=== PATIENT | male | born 1950 | race Caucasian/White ===

== ENCOUNTER 2018-02-19 16:02 | Emergency (ER) | payer OTHER ==
[2018-02-19 16:07] VITALS: BP 139/78; PULSE 74; TEMP 97.1; BMI 22.1
--- NOTE | 2018-02-19 16:09 | PDOC ---
Rapid Medical Evaluation Chief Complaint: Chest Pain Time Seen by Provider: 02/19/18 16:04 Medical Evaluation: Allergies Allergy/AdvReac Type Severity Reaction Status Date / Time No Known Allergies Allergy Verified 04/21/15 20:16 02/19/18 16:05 I have performed a brief in-person evaluation of this patient. The patient presents with a chief complaint of: CP, dizziness, Nausea Pertinent physical exam findings:+ SOB, pale, diaphoretic I have ordered the following: CBC,CMP, Cardiac profile, PT/INR, EKG The patient taken to the ED for further evaluation. 02/19/18 16:08 02/19/18 16:09 Discharge Disposition - Referrals Referrals: Francisco Mukherjee MD [Primary Care Provider] - - Patient Instructions - Post Discharge Activity
[2018-02-19] MEDS ORDERED: ONDANSETRON 4 MG/2 ML VIAL ONE (16:27)
[2018-02-19] MEDS ORDERED: ONDANSETRON 4 MG/2 ML VIAL IVPB ONE (16:27)
[2018-02-19] MEDS ORDERED: SODIUM CHLORIDE 1,000 ML IV STA (16:27)
[2018-02-19 16:28] LABS: BASO % 0.8 % (0-2.0); EOS % 3.3 % (0-4.5); HEMATOCRIT 44.5 % (35.4-49); HEMOGLOBIN 14.5 GM/dL (11.7-16.9); LYMPH % 36.5 % (8-40); MCH 26.2 pg (25.7-33.7); MCHC 32.6 g/dl (32.0-35.9); MEAN CELL VOLUME 80.5 fl (80-96); MEAN PLT VOLUME 9.4 fl (7.5-11.1); MONO % 9.8 % (3.8-10.2); NEUT % 49.6 % (42.8-82.8); PLATELET COUNT 249 K/MM3 (134-434); RBC 5.53 M/mm3 (4.00-5.60); RDW 13.7 % (11.9-15.9); WHITE BLOOD COUNT 5.3 K/mm3 (4.0-10.0)
[2018-02-19 16:44] LABS: INR 1.05 (0.83-1.09); PROTHROMBIN TIME (PATIENT) 11.9 SEC (9.7-13.0)
[2018-02-19 16:51] LABS: ALBUMIN 3.7 g/dl (3.4-5.0); ANION GAP 9 MMOL/L (8-16); BILIRUBIN,TOTAL 0.4 mg/dL (0.2-1.0); BLOOD UREA NITROGEN 18 mg/dL (7-18); CALCIUM 8.5 mg/dL (8.5-10.1); CHLORIDE 110 mmol/L (98-107); CO2 26 mmol/L (21-32); CREATININE 0.8 mg/dL (0.7-1.3); GLUCOSE,RANDOM 109 mg/dL (74-106); POTASSIUM 4.1 mmol/L (3.5-5.1); SGOT/AST 16 U/L (15-37); SGPT/ALT 23 U/L (12-78); SODIUM 145 mmol/L (136-145); TOT PROT 6.9 g/dl (6.4-8.2)
[2018-02-19 16:53] LABS: ALK PHOS 64 U/L (45-117)
--- NOTE | 2018-02-19 16:53 | PDOC ---
History of Present Illness - General Chief Complaint: Pain Stated Complaint: ABD PAIN Time Seen by Provider: 02/19/18 16:04 History Source: Patient, Spouse () Exam Limitations: No Limitations - History of Present Illness Initial Comments: 02/19/18 16:44 Pt is a 67yo m with no significant PMH arriving to ED with complaints of dizziness and nausea that started 2 hours ago. Pt said he was lying down and when he got up he started to feel dizzy. He has continuously felt dizzy since. He describes the dizziness as the room spinning and it gets better with sitting down. It is associated with nausea, shortness of breath and diaphoresis. He also hears ringing in his L ear. He denies chest pain, syncope, lightheadedness, headache, vomiting, weakness, numbness/tingling, abdominal pain, blood in stool, urinary symptoms. Denies family history of stroke. Brother had a "Mini heart attack" at age 56 but no emergent intervention needed to be done. PCP: Dr. Francisco Mukherjee PMH: none PSH: none Meds: none Allergies: nkda Social: denies Past History - Past Medical History Allergies/Adverse Reactions: Allergies Allergy/AdvReac Type Severity Reaction Status Date / Time No Known Allergies Allergy Verified 02/19/18 16:07 Home Medications: Ambulatory Orders Meclizine HCl 12.5 mg PO BID #14 tablet 02/19/18 Ondansetron HCl [Zofran] 4 mg PO DAILY #7 tablet 02/19/18 COPD: No - Immunization History Immunization Up to Date: Yes - Suicide/Smoking/Psychosocial Hx Smoking History: Never smoked Have you smoked in the past 12 months: No Number of Cigarettes Smoked Daily: 0 Information on smoking cessation initiated: No Hx Alcohol Use: No Drug/Substance Use Hx: No Substance Use Type: None Review of Systems - Review of Systems Constitutional: Yes: Diaphoresis. No: Chills, Fever HEENTM: Yes: Tinnitus (L ear). No: Eye Pain, Blurred Vision, Recent change in vision, Double Vision, Ear Pain, Hearing Loss Respiratory: Yes: Shortness of Breath. No: Cough Cardiac (ROS): No: Chest Pain, Lightheadedness, Palpitations, Syncope ABD/GI: Yes: Nausea. No: Blood Streaked Bowels, Constipated, Diarrhea, Vomiting , Abdominal cramping : No: Burning, Dysuria, Hematuria Musculoskeletal: No: Back Pain, Joint Pain, Muscle Pain, Muscle Weakness, Neck Pain, Joint Stiffness Neurological: No: Headache, Numbness, Tingling, Weakness *Physical Exam - Vital Signs Last Vital Signs Temp Pulse Resp BP Pulse Ox 97.1 F L 74 21 139/78 99 02/19/18 16:06 02/19/18 16:06 02/19/18 16:06 02/19/18 16:06 02/19/18 16:06 - Physical Exam Comments: 02/19/18 16:57 Pt appeared pale General Appearance: Yes: Nourished, Appropriately Dressed, Mild Distress HEENT: positive: EOMI, MOHAMUD, TMs Normal, Hearing Grossly Normal. negative: Pale Conjunctivae, Scleral Icterus (R), Scleral Icterus (L), Sinus Tenderness Neck: positive: Trachea midline, Supple. negative: Carotid bruit, Lymphadenopathy (R), Lymphadenopathy (L) Respiratory/Chest: positive: Lungs Clear, Normal Breath Sounds. negative: Rales , Rhonchi, Stridor, Wheezing Cardiovascular: positive: Regular Rhythm, Regular Rate, S1, S2. negative: Edema , JVD, Murmur Vascular Pulses: Carotid (R): 2+, Carotid (L): 2+, Dorsalis-Pedis (R): 2+, Doralis-Pedis (L): 2+ Gastrointestinal/Abdominal: positive: Normal Bowel Sounds, Soft. negative: Distended, Guarding, Rebound, Tenderness Musculoskeletal: negative: CVA Tenderness Extremity: positive: Normal Capillary Refill Integumentary: positive: Normal Color, Dry, Warm. 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, Fully Oriented, Alert, Normal Mood/ Affect, Normal Response, Motor Strength 5/5, Finger to Nose Deep Tendon Reflexes: Knee (L): 2+, Knee (R): 2+ ED Treatment Course - LABORATORY CBC & Chemistry Diagram: 02/19/18 16:13 02/19/18 16:13 - ADDITIONAL ORDERS Additional order review: 02/19/18 16:13 RBC 5.53 MCV 80.5 MCHC 32.6 RDW 13.7 MPV 9.4 Neutrophils % 49.6 D Lymphocytes % 36.5 D Monocytes % 9.8 Eosinophils % 3.3 D Basophils % 0.8 - RADIOLOGY Radiology Studies Ordered: Category Date Time Status CHEST X-RAY PORTABLE* [RAD] Stat Radiology 02/19/18 16:12 Taken - Medications Given in the ED: ED Medications Discontinued Medications Generic Name Dose Route Start Last Admin Trade Name Arsen PRN Reason Stop Dose Admin Ondansetron HCl 4 mg 02/19/18 16:27 02/19/18 16:30 Zofran Injection IVPB 02/19/18 16:28 4 mg ONCE ONE Administration Medical Decision Making - Medical Decision Making 02/19/18 16:54 Pt is a 67yo m with no significant PMH arriving to ED with complaints of dizziness and nausea that started 2 hours ago. *pt had an episode of emesis during physical exam. Pt stated he felt really dizzy and really nauseous. I went to get the nurse to administer Zofran. Pt started to vomit. Pt reported feeling much better after emesis, said he was not feeling dizzy and did not feel short of breath. 02/19/18 17:40 Upon reevaluation, pt reported feeling "a little bit better". When asked if he still had some dizziness, pt said yes. Ordered Meclizine 25mg. Will reevalute. If still dizzy after meclizine, considering head CT or CTA neck. 02/19/18 18:26 Pt reported resolution of symptoms. Pt able to ambulate and did not feel dizzy. Will d/c pt home. Asked pt to follow up with PCP. Pt hemodynamically stable. Agreed with plan to be d/c home. Given strict return precautions. Verbalized understanding. Rx for zofran and meclizine sent to pharmacy. *DC/Admit/Observation/Transfer Diagnosis at time of Disposition: Vertigo - Discharge Dispostion Disposition: HOME Condition at time of disposition: Improved Decision to Admit order: No - Prescriptions Prescriptions: Meclizine HCl 12.5 mg PO BID #14 tablet Ondansetron HCl [Zofran] 4 mg PO DAILY #7 tablet - Referrals Referrals: Francisco Mukherjee MD [Primary Care Provider] - - Patient Instructions Printed Discharge Instructions: DI for Vertigo Additional Instructions: You were seen here today because you were feeling dizzy. We did blood tests, Xray and an EKG. Your results were normal. The most likely cause of your dizziness is Vertigo. Please make an appointment with Dr. Mukherjee within the next week for further care. I sent prescriptions to your pharmacy: meclizine and Zofran. Please come back to the ED if: your dizziness gets worse, you start feeling numbness/tingling, you are unable to move your arms or legs, your speech gets slurred, you lose consciousness, you develop fever, you start to vomit, you develop headache or if any new concerning symptom develops. Thank you - Post Discharge Activity
[2018-02-19] MEDS ORDERED: MECLIZINE HCL 25 MG TABLET (FP) PO ONE (17:13)
[2018-02-19] MEDS ORDERED: MECLIZINE HCL 25 MG TABLET (FP) ONE (17:22)
--- NOTE | 2018-02-19 18:22 | PDOC ---
Attending Attestation - Resident Resident Name: Ana LauraSonal - ED Attending Attestation I have performed the following: I have examined & evaluated the patient, The case was reviewed & discussed with the resident, I agree w/resident's findings & plan, Exceptions are as noted - HPI HPI: 02/19/18 18:20 67-year-old male who experienced dizziness associated with nausea, vomiting and ringing in his ears - Physicial Exam PE: 02/19/18 18:22 67 yo male w positional dizziness and vomiting head ncat eyes stu eomi, ++nystagmus neck supple no bruits lungs cta b/l cvs [id number] abd nontender,flat ext no edema neuro axox3,motor strength 5/5 b/l, dtr+2, no clonus and no ataxia skin warm ans dry psych appropriate - Medical Decision Making 02/19/18 18:25 labs unremarkable ekg nsr @ 64 bpm, negative troponin pt 's symptoms resolved imp benign positional vertigo plan d/c home with ,meclizine and zofran
--- NOTE | 2018-02-20 16:30 | EKG ---
Test Reason : Blood Pressure : / mmHG Vent. Rate : 064 BPM Atrial Rate : 064 BPM P-R Int : 194 ms QRS Dur : 088 ms QT Int : 400 ms P-R-T Axes : 068 054 068 degrees QTc Int : 412 ms NORMAL SINUS RHYTHM SEPTAL INFARCT (CITED ON OR BEFORE 09-MAR-2007) ABNORMAL ECG WHEN COMPARED WITH ECG OF 07-MAR-2015 03:54, NO SIGNIFICANT CHANGE WAS FOUND Confirmed by Daniel Tobin ([id number]) on 02/20/2018 4:30:12 PM Referred By: Confirmed By:Daniel Tobin
== END 2018-02-19 18:29 | disposition home or self-care (01) ==
LOC: JER 16:02
DX: H81.10 Benign paroxysmal vertigo, unspecified ear (principal)
CPT/HCPCS: 36415; 71045-TC-FY; 80053; 82550; 84484; 85025; 85610; 93005; 93010; 99284-25; J7030

== ENCOUNTER 2020-12-03 19:14 | Emergency (ER) | payer OTHER ==
[2020-12-03 19:31] VITALS: TEMP 98.5; BMI 21.4
[2020-12-03] MEDS ORDERED: SODIUM CHLORIDE 1,000 ML IV SCH (19:45)
[2020-12-03] MEDS ORDERED: MECLIZINE HCL 25 MG TABLET (FP) PO ONE (20:09)
[2020-12-03] MEDS ORDERED: METOCLOPRAMIDE HCL INJECTION 10 MG/2 ML VIAL IVPUSH ONE (20:10)
[2020-12-03 20:21] VITALS: BP 125/65
[2020-12-03] MEDS ORDERED: METOCLOPRAMIDE HCL INJECTION 10 MG/2 ML VIAL ONE (20:22)
[2020-12-03] MEDS ORDERED: MECLIZINE HCL 25 MG TABLET (FP) ONE (20:23)
[2020-12-03 20:30] LABS: PH,URINE 6.5 (5.0-8.0); URINE APPEARANCE CLEAR; URINE BILIRUBIN NEGATIVE (NEGATIVE); URINE COLOR YELLOW; URINE GLUCOSE (UA) NEGATIVE (NEGATIVE); URINE KETONE NEGATIVE (NEGATIVE); URINE LEUK ESTERASE NEGATIVE (NEGATIVE); URINE NITRITE NEGATIVE (NEGATIVE); URINE PROTEIN NEGATIVE (NEGATIVE)
[2020-12-03 20:31] LABS: EOS % 2.6 % (0-4.5); HEMATOCRIT 41.1 % (35.4-49); HEMOGLOBIN 13.5 GM/dL (11.7-16.9); MCH 26.8 pg (25.7-33.7); MEAN CELL VOLUME 81.4 fl (80-96); MEAN PLT VOLUME 9.5 fl (7.5-11.1); MONO % 8.2 % (3.8-10.2); NEUT % 56.2 % (42.8-82.8); PLATELET COUNT 199 10^3/uL (134-434); RBC 5.05 M/mm3 (4.00-5.60); WHITE BLOOD COUNT 5.8 K/mm3 (4.0-10.0)
[2020-12-03 20:36] LABS: INR 1.06 (0.83-1.09)
[2020-12-03 20:39] LABS: ACTIVATED PTT 28.8 SECONDS (25.2-36.5)
[2020-12-03 20:52] LABS: CHLORIDE 109 mmol/L (98-107); MAGNESIUM 2.3 mg/dL (1.8-2.4); SODIUM 142 mmol/L (136-145)
[2020-12-03 20:53] LABS: CALCIUM 8.5 mg/dL (8.5-10.1)
[2020-12-03 20:54] LABS: ALBUMIN 3.7 g/dl (3.4-5.0); ANION GAP 4 MMOL/L (8-16); BLOOD UREA NITROGEN 19.4 mg/dL (7-18); CO2 28 mmol/L (21-32); GLUCOSE,RANDOM 80 mg/dL (74-106)
[2020-12-03 20:56] LABS: PHOSPHOROUS 3.5 mg/dL (2.5-4.9)
[2020-12-03 20:57] LABS: CREATININE 0.8 mg/dL (0.55-1.3); SGOT/AST 14 U/L (15-37); SGPT/ALT 17 U/L (13-61)
[2020-12-03 20:59] LABS: BILIRUBIN,TOTAL 0.5 mg/dL (0.2-1); TOT PROT 6.5 g/dl (6.4-8.2)
[2020-12-03 21:00] LABS: ALK PHOS 66 U/L (45-117)
[2020-12-03 23:10] VITALS: PULSE 89
== END 2020-12-03 23:10 | disposition home or self-care (01) ==
LOC: JER 19:14
PROC: 3E033NZ Introduction of Analgesics, Hypnotics, Sedatives into Peripheral Vein, Percutaneous Approach (ICD-10-PCS; principal; 2020-12-03)
DX: R42 Dizziness and giddiness (principal)
CPT/HCPCS: 36415; 71045-TC-FY; 80053; 81003; 83735; 84100; 84484; 85025; 85610; 85730; 87086; 87186; 93005; 93010; 99285-25

== ENCOUNTER 2021-03-23 12:24 | Emergency (ER) | payer OTHER ==
[2021-03-23 12:49] VITALS: TEMP 98.4; BMI 21.7
[2021-03-23] MEDS ORDERED: MECLIZINE HCL 25 MG TABLET (FP) PO ONE (13:25)
[2021-03-23] MEDS ORDERED: SODIUM CHLORIDE 0.9% 500 ML INFUS.BAG IV ONE (13:32)
[2021-03-23] MEDS ORDERED: METOCLOPRAMIDE HCL INJECTION 10 MG/2 ML VIAL IVPB ONE (13:32)
[2021-03-23] MEDS ORDERED: MECLIZINE HCL 25 MG TABLET (FP) ONE (13:48)
[2021-03-23] MEDS ORDERED: METOCLOPRAMIDE HCL INJECTION 10 MG/2 ML VIAL ONE (13:48)
[2021-03-23 14:18] LABS: BASO % 1.2 % (0-2.0); EOS % 2.2 % (0-4.5); HEMATOCRIT 42.2 % (35.4-49); HEMOGLOBIN 13.9 GM/dL (11.7-16.9); LYMPH % 30.5 % (8-40); MCHC 32.9 g/dl (32.0-35.9); MEAN CELL VOLUME 82.1 fl (80-96); MEAN PLT VOLUME 10.6 fl (7.5-11.1); NEUT % 57.1 % (42.8-82.8); PLATELET COUNT 191 10^3/uL (134-434); RBC 5.14 M/mm3 (4.00-5.60); RDW 14.1 % (11.9-15.9); WHITE BLOOD COUNT 4.9 K/mm3 (4.0-10.0)
[2021-03-23 14:29] LABS: CHLORIDE 109 mmol/L (98-107); SODIUM 142 mmol/L (136-145)
[2021-03-23 14:31] LABS: CALCIUM 8.7 mg/dL (8.5-10.1)
[2021-03-23 14:32] LABS: ALBUMIN 3.8 g/dl (3.4-5.0); ANION GAP 4 MMOL/L (8-16); BLOOD UREA NITROGEN 17.4 mg/dL (7-18); CO2 29 mmol/L (21-32); GLUCOSE,RANDOM 86 mg/dL (74-106); MAGNESIUM 2.2 mg/dL (1.8-2.4)
[2021-03-23 14:35] LABS: CREATININE 0.8 mg/dL (0.55-1.3); SGOT/AST 17 U/L (15-37); SGPT/ALT 25 U/L (13-61)
[2021-03-23 14:36] LABS: BILIRUBIN,TOTAL 0.6 mg/dL (0.2-1)
[2021-03-23 14:37] LABS: TOT PROT 6.9 g/dl (6.4-8.2)
[2021-03-23 14:38] LABS: ALK PHOS 67 U/L (45-117)
[2021-03-23 16:48] VITALS: BP 135/69; PULSE 53
== END 2021-03-23 16:45 | disposition home or self-care (01) ==
LOC: JER 12:24
PROC: 3E033NZ Introduction of Analgesics, Hypnotics, Sedatives into Peripheral Vein, Percutaneous Approach (ICD-10-PCS; principal; 2021-03-23)
DX: R42 Dizziness and giddiness (principal)
CPT/HCPCS: 36415; 70450-TC; 71046-TC-FY; 80053; 82550; 83735; 84484; 85025; 93005; 93010; 96374; 99284-25

== ENCOUNTER 2021-06-13 14:18 | Emergency (ER) | payer OTHER ==
[2021-06-13 14:45] VITALS: BP 122/76; PULSE 67; TEMP 98.4; BMI 21.2
[2021-06-15 00:07] LABS: SARS-CoV-2 NAA Not Detected (Not Detected)
== END 2021-06-13 14:50 | disposition home or self-care (01) ==
LOC: FER 14:18
DX: J06.9 Acute upper respiratory infection, unspecified (principal)
CPT/HCPCS: 99283-25; C9803; U0003; U0005

== ENCOUNTER 2021-09-29 16:49 | Emergency (ER) | payer OTHER ==
[2021-09-29 16:55] VITALS: BP 117/63; PULSE 77; TEMP 97.9; BMI 21.4
[2021-09-29] MEDS ORDERED: KETOROLAC TROMETHAMINE 30 MG/1 ML VIAL IM ONE (17:15)
[2021-09-29] MEDS ORDERED: KETOROLAC TROMETHAMINE 30 MG/1 ML VIAL ONE (17:21)
== END 2021-09-29 17:25 | disposition home or self-care (01) ==
LOC: JERFT 16:49
PROC: 3E023GC Introduction of Other Therapeutic Substance into Muscle, Percutaneous Approach (ICD-10-PCS; principal; 2021-09-29)
DX: M54.50 Low back pain, unspecified (principal)
CPT/HCPCS: 99284-25

== ENCOUNTER 2023-01-11 05:07 | Day surgery (SDC) | payer OTHER ==
[2023-01-06 10:20] VITALS: BMI 21.9
[~2023-01-11 05:07] MED LIST: ACETAMINOPHEN 325 MG TABLET (FP) PO PRN; BSS (NA/CA/MG/K) BALANCED SALT SOLUTION OPHTH SOLN 15 ML BOTTLE OD ONE; CHONDROITIN SU A/HYALUR SOD 1 KIT IO ONE; LIDOCAINE HCL 1% PRESERVATIVE FREE - 30ML VIAL IO ONE; PHENYLEPHRINE/KETOROLAC 4 ML VIAL IO ONE
[2023-01-11 06:42] VITALS: RESP 18
[2023-01-11] MEDS ORDERED: OFLOXACIN 0.3% OPHTHALMIC SOLUTION 5 ML BOTTLE ONE (07:08)
[2023-01-11] MEDS ORDERED: CYCLOPENTOLATE HCL 1% OPHTH SOLN 2 ML BOTTLE ONE (07:08)
[2023-01-11] MEDS ORDERED: TROPICAMIDE 1% OPHTH SOLN 15 ML BOTTLE ONE (07:08)
[2023-01-11] MEDS ORDERED: KETOROLAC TROMETHAMINE 0.5% EYE DROP 1 DROP DROPS ONE (07:08)
[2023-01-11] MEDS ORDERED: PHENYLEPHRINE 2.5% OPTHALMIC DROP 2ML BOTTLE ONE (07:08)
[2023-01-11] MEDS: KETOROLAC TROMETHAMINE 0.5% EYE DROP 1 DROP DROPS OP SCH ×3 (07:10→07:40)
[2023-01-11] MEDS: TROPICAMIDE 1% OPHTH SOLN 15 ML BOTTLE OP SCH ×3 (07:10→07:40)
[2023-01-11] MEDS: PHENYLEPHRINE 2.5% OPHTH SOLN 15 ML BOTTLE OP SCH ×3 (07:10→07:40)
[2023-01-11] MEDS: CYCLOPENTOLATE HCL 1% OPHTH SOLN 2 ML BOTTLE OP SCH ×3 (07:10→07:40)
[2023-01-11] MEDS: OFLOXACIN 0.3% OPHTHALMIC SOLUTION 5 ML BOTTLE OP SCH ×3 (07:10→07:40)
[2023-01-11] MEDS ORDERED: PHENYLEPHRINE/KETOROLAC 4 ML VIAL IO ONE ×2 (08:56→09:33)
[2023-01-11] MEDS ORDERED: MIDAZOLAM HCL 2 MG/2 ML SINGLE DOSE VIAL ONE (08:59)
[2023-01-11] MEDS ORDERED: PROPOFOL 20 ML ONE ×2 (08:59→09:00)
[2023-01-11] MEDS ORDERED: TETRACAINE 0.5% HCL 0.6ML DROPPER.BOTTLE OD ONE (09:15)
[2023-01-11] MEDS ORDERED: POVIDONE-IODINE 5% OPHTHALMIC PREP 30 ML SOLUTION OD ONE (09:17)
[2023-01-11] MEDS ORDERED: LIDOCAINE HCL 1% PRESERVATIVE FREE - 30ML VIAL IO ONE (09:26)
[2023-01-11] MEDS ORDERED: BSS (NA/CA/MG/K) BALANCED SALT SOLUTION OPHTH SOLN 15 ML BOTTLE OD ONE (09:26)
[2023-01-11] MEDS ORDERED: CHONDROITIN SU A/HYALUR SOD 1 KIT IO ONE (09:27)
[2023-01-11 11:14] VITALS: BP 138/86; PULSE 59; TEMP 98.1
== END 2023-01-11 11:10 | disposition home or self-care (01) ==
LOC: JASU-SURG 05:07
PROVIDERS: ATTEND Ophthalmology
PROC: 08RJ3JZ Replacement of Right Lens with Synthetic Substitute, Percutaneous Approach (ICD-10-PCS; principal; 2023-01-11 08:30)
DX: H26.9 Unspecified cataract (principal)
CPT/HCPCS: J1097; V2632

== ENCOUNTER 2023-01-25 04:41 | Day surgery (SDC) | payer OTHER ==
[2023-01-23 10:00] VITALS: BMI 21.9
[~2023-01-25 04:41] MED LIST changes: -BSS (NA/CA/MG/K) BALANCED SALT SOLUTION OPHTH SOLN 15 ML BOTTLE OD ONE; -CHONDROITIN SU A/HYALUR SOD 1 KIT IO ONE; -LIDOCAINE HCL 1% PRESERVATIVE FREE - 30ML VIAL IO ONE; -PHENYLEPHRINE/KETOROLAC 4 ML VIAL IO ONE
[2023-01-25] MEDS ORDERED: OFLOXACIN 0.3% OPHTHALMIC SOLUTION 5 ML BOTTLE ONE (07:22)
[2023-01-25] MEDS ORDERED: TROPICAMIDE 1% 3 ML EYE DROPS ONE (07:22)
[2023-01-25] MEDS ORDERED: KETOROLAC TROMETHAMINE 0.5% EYE DROP 1 DROP DROPS ONE (07:22)
[2023-01-25] MEDS ORDERED: CYCLOPENTOLATE HCL 1% OPHTH SOLN 2 ML BOTTLE ONE (07:22)
[2023-01-25] MEDS ORDERED: PHENYLEPHRINE 2.5% OPTHALMIC DROP 2ML BOTTLE ONE (07:22)
[2023-01-25] MEDS ORDERED: PHENYLEPHRINE 2.5% OPHTH SOLN 15 ML BOTTLE OS ONE ×3 (07:35→07:45)
[2023-01-25] MEDS ORDERED: OFLOXACIN 0.3% OPHTHALMIC SOLUTION 5 ML BOTTLE OS ONE ×3 (07:35→07:45)
[2023-01-25] MEDS ORDERED: TROPICAMIDE 1% OPHTH SOLN 15 ML BOTTLE OS ONE ×3 (07:35→07:45)
[2023-01-25] MEDS ORDERED: CYCLOPENTOLATE HCL 1% OPHTH SOLN 2 ML BOTTLE OS ONE ×3 (07:35→07:45)
[2023-01-25] MEDS ORDERED: KETOROLAC TROMETHAMINE 0.5% EYE DROP 1 DROP DROPS OS ONE ×3 (07:35→07:45)
[2023-01-25 07:41] VITALS: RESP 18
[2023-01-25] MEDS ORDERED: TETRACAINE 0.5% HCL 0.6ML DROPPER.BOTTLE OS ONE (08:20)
[2023-01-25] MEDS ORDERED: POVIDONE-IODINE 5% OPHTHALMIC PREP 30 ML SOLUTION OS ONE (08:22)
[2023-01-25] MEDS ORDERED: OFLOXACIN 0.3% OPHTHALMIC SOLUTION 5 ML BOTTLE OP SCH (08:30)
[2023-01-25] MEDS ORDERED: PHENYLEPHRINE 2.5% OPHTH SOLN 15 ML BOTTLE OP SCH (08:30)
[2023-01-25] MEDS ORDERED: CYCLOPENTOLATE HCL 1% OPHTH SOLN 2 ML BOTTLE OP SCH (08:30)
[2023-01-25] MEDS ORDERED: KETOROLAC TROMETHAMINE 0.5% EYE DROP 1 DROP DROPS OP SCH (08:30)
[2023-01-25] MEDS ORDERED: TROPICAMIDE 1% OPHTH SOLN 15 ML BOTTLE OP SCH (08:30)
[2023-01-25] MEDS ORDERED: MIDAZOLAM HCL 2 MG/2 ML SINGLE DOSE VIAL ONE (08:58)
[2023-01-25] MEDS ORDERED: PROPOFOL 20 ML ONE (08:59)
[2023-01-25] MEDS ORDERED: LIDOCAINE HCL 1% PRESERVATIVE FREE - 30ML VIAL IJ ONE (09:29)
[2023-01-25] MEDS ORDERED: PHENYLEPHRINE/KETOROLAC 4 ML VIAL IO ONE ×2 (09:30→09:36)
[2023-01-25] MEDS ORDERED: BSS (NA/CA/MG/K) BALANCED SALT SOLUTION OPHTH SOLN 15 ML BOTTLE OS ONE (09:30)
[2023-01-25 14:16] VITALS: BP 136/70; PULSE 62; TEMP 98.4
== END 2023-01-25 10:40 | disposition home or self-care (01) ==
LOC: JASU-SURG 04:41
PROVIDERS: ATTEND Ophthalmology
PROC: 08RK3JZ Replacement of Left Lens with Synthetic Substitute, Percutaneous Approach (ICD-10-PCS; principal; 2023-01-25 09:00)
DX: H26.9 Unspecified cataract (principal)
CPT/HCPCS: J1097; V2632

== ENCOUNTER 2023-07-10 16:10 | Emergency (ER) | payer OTHER ==
[2023-07-10 16:25] VITALS: BP 120/76; PULSE 98; RESP 16; TEMP 98.3; BMI 22.2
[2023-07-10] MEDS ORDERED: SILVER SULFADIAZINE 1% TOP CREAM 50 GM JAR TP ONE ×2 (16:26→16:30)
[2023-07-10] MEDS ORDERED: DIPHTH,PERTUSS(ACELL),TET 0.5 ML DISP.SYRIN IM ONE ×2 (16:42→16:46)
== END 2023-07-10 16:57 | disposition home or self-care (01) ==
LOC: SUPCPDRO 16:10 → FER 16:10
PROC: 3E0234Z Introduction of Serum, Toxoid and Vaccine into Muscle, Percutaneous Approach (ICD-10-PCS; principal; 2023-07-10)
DX: T25.222A Burn of second degree of left foot, initial encounter (principal)
CPT/HCPCS: 90471; 90715; 99283-25